=== PATIENT | female | born 1960 | race African-American/Black ===

== ENCOUNTER 2021-06-06 05:52 | Emergency (ER) | payer OTHER ==
[2021-06-06] MEDS ORDERED: Ketorolac Tromethamine 30 MG/ML VIAL ONE (06:13)
[2021-06-06] MEDS ORDERED: Fentanyl 100 MCG/2 ML VIAL ONE (09:17)
== END 2021-06-06 09:35 | disposition home or self-care (01) ==
LOC: ERS 05:52
DX: E11.42 Type 2 diabetes mellitus with diabetic polyneuropathy (principal); I10 Essential (primary) hypertension; J44.9 Chronic obstructive pulmonary disease, unspecified; Z79.899 Other long term (current) drug therapy
CPT/HCPCS: 96372; 99283; J1885; J3010

== ENCOUNTER 2022-05-10 06:24 | Inpatient (IN) | payer OTHER, SELFPAY ==
[2022-05-10] MEDS ORDERED: Ketorolac Tromethamine 30 MG/ML VIAL ONE (06:43)
[2022-05-10] MEDS ORDERED: Ondansetron PF 4 MG/2 ML Vial ONE ×2 (06:44→10:47)
[2022-05-10] MEDS ORDERED: Morphine 4 MG/ML VIAL ONE ×2 (06:44→10:57)
[2022-05-10 07:37] LABS: #Lymphocytes 1.5 thou/uL (1.20-3.40); #Monocytes 0.9 thou/uL (0.11-0.59); #Neutrophils 5.3 thou/uL (1.40-6.50); %Basophils 0.2 % (0.0-1.0); %Eosinophils 0.2 % (0.0-10.0); %Monocytes 11.1 % (0.0-10.0); %Neutrophils 69.4 % (42.0-75.0); Hemoglobin 14.2 g/dL (12.0-16.0); Mean Corpuscular HGB CONC 33.7 g/dL (32.0-36.0); Mean Corpuscular Hemoglobin 29.8 pg (27.0-31.0); Mean Corpuscular Volume 88.5 fl (78.0-98.0); Mean Platelet Volume 8.5 fL (7.4-10.4); Platelet Count 186 10x3/uL (130-400); RBC Distribution Width 17.9 % (11.5-14.5); Red Blood Cell (RBC) Count 4.77 mill/uL (4.20-5.40); White Blood Cell (WBC) Count 7.7 10x3/uL (4.8-10.8)
[2022-05-10 07:52] LABS: ALT (SGPT) 24 U/L (8-55); AST (SGOT) 36 U/L (5-34); Albumin 3.4 g/dL (3.4-4.8); Alkaline Phosphatase 174 U/L (40-110); Anion Gap 18 mmol/L (10-20); BUN (Urea Nitrogen) 25 mg/dL (9.8-20.1); Bilirubin, Total 5.6 mg/dL (0.2-1.2); Calc. Creatinine Clearance 0 mL/min (70-130); Calcium 9.5 mg/dL (7.8-10.44); Carbon Dioxide 21 mmol/L (23-31); Chloride 102 mmol/L (98-107); Estimated GFR 68; Globulin 5.1 g/dL (2.4-3.5); Glucose 87 mg/dL (80-115); Potassium 3.5 mmol/L (3.5-5.1); Protein, Total 8.5 g/dL (5.8-8.1); Sodium 137 mmol/L (136-145)
[2022-05-10] MEDS ORDERED: Nitroglycerin 2% Ointment 1 INCH/1 GM Packet ONE ×2 (07:55→13:16)
[2022-05-10] MEDS ORDERED: Furosemide 40 MG/4 ML VIAL ONE ×2 (07:55→13:16)
[2022-05-10] MEDS ORDERED: Aspirin Chewable 81 MG TAB ONE (07:55)
[2022-05-10 08:10] LABS: SARS-CoV-2 NAA Rapid Test DETECTED (NotDetected)
[2022-05-10 08:14] LABS: CKMB 0.3 ng/mL (0-6.6)
[2022-05-10 08:24] LABS: Bilirubin Negative (Negative); Blood, Urine Negative (Negative); Clarity Clear (Clear); Glucose, Urine (Dipstick) Normal (Negative); Ketone, Urine Negative (Negative); Leukocyte Negative Leu/uL (Negative); Nitrite Negative (Negative); Protein, Urine (Dipstick) 30 mg/dL (Neg-Trace); RBC/HPF 0-3 HPF (0-3); Specific Gravity, Urine 1.017 (1.002-1.036); Urobilinogen 6 mg/dL (Less than 2); WBC/HPF 0-3 HPF (0-3); pH, Urine 5.5 (5.0-9.0)
[2022-05-10 08:25] LABS: Bacteria/HPF Rare-Few HPF (None Seen)
[2022-05-10] MEDS ORDERED: Acetaminophen 500 MG TAB ONE (08:46)
[2022-05-10] MEDS ORDERED: Acetaminophen 500 MG TAB PO PRN (10:50)
[2022-05-10] MEDS ORDERED: Dextrose 50% Abboject 50 ML SYRINGE SLOW IVP PRN (10:56)
[2022-05-10] MEDS ORDERED: Dextrose 5% in Water 1,000 ML IV PRN (10:56)
[2022-05-10] MEDS ORDERED: Benzonatate 100 MG CAP PO PRN (10:56)
[2022-05-10] MEDS ORDERED: HumaLOG 300 UNITS/3 ML VIAL SC PRN ×2 (10:57)
[2022-05-10 10:59] LABS: Troponin I 0.036 ng/mL (< 0.028)
[2022-05-10] MEDS: Morphine 4 MG/ML VIAL SLOW IVP PRN ×3 (11:01→21:35)
[2022-05-10] MEDS ORDERED: Metoclopramide HCl 10 MG/2 ML VIAL IVP PRN (11:02)
[2022-05-10] MEDS ORDERED: Electrolyte Replacement Protocol FS SCH (11:15)
[2022-05-10] MEDS ORDERED: Gabapentin 400 MG CAP PO SCH (12:45)
[2022-05-10] MEDS ORDERED: traMADol HCl 50 MG TAB ONE (13:17)
[2022-05-10] MEDS: Furosemide 40 MG/4 ML VIAL SLOW IVP SCH (13:19)
[2022-05-10] MEDS: traMADol HCl 50 MG TAB PO PRN (13:19)
[2022-05-10 13:40] LABS: Troponin I 0.046 ng/mL (< 0.028)
[2022-05-10] MEDS ORDERED: Potassium Chloride 20 MEQ TAB PO SCH (13:45)
[2022-05-10] MEDS ORDERED: Potassium Chloride 20 MEQ TAB ONE (13:57)
[2022-05-10] MEDS ORDERED: Nitroglycerin 2% Ointment 1 INCH/1 GM Packet TOP SCH (14:00)
[2022-05-10] MEDS ORDERED: Iopamidol-370 76% 500 ML 1 ML ONE (15:36)
[2022-05-10 15:47] VITALS: BMI 37.3
[2022-05-10] MEDS: Carvedilol 6.25 MG TAB PO SCH (17:58)
[2022-05-10] MEDS ORDERED: DOBUTamine 500 mg/250 ml 250 ML IVPB SCH (19:00)
[2022-05-10] MEDS ORDERED: DOBUTamine 500 mg/250 ml 500 MG in Premix Bag 1 BAG IVPB SCH (19:00)
[2022-05-10] MEDS: Mometasone/Formoterol 200/5 60 PUFF INH SCH (19:32)
[2022-05-10] MEDS: Famotidine 20 MG TAB PO SCH (20:49)
[2022-05-10] MEDS: Montelukast Sodium 10 mg Tablet PO SCH (20:49)
[2022-05-10] MEDS: Gabapentin 400 MG CAP PO SCH (20:50)
[2022-05-10] MEDS: Albuterol 200 PUFF (6.7GM INHALER) INH SCH (20:50)
[2022-05-10] MEDS ORDERED: Atorvastatin Calcium 10 MG TAB PO SCH (21:00)
[2022-05-10] MEDS: NIRMATRELVIR 150 MG/RITONAVIR 100 MG PO SCH (21:19)
[2022-05-10] MEDS: DOBUTamine 500 mg/250 ml 500 MG in Premix Bag 1 BAG IVPB SCH (21:22)
[2022-05-11] MEDS: Albuterol 200 PUFF (6.7GM INHALER) INH SCH ×4 (03:50→20:44)
[2022-05-11 05:01] LABS: #Lymphocytes 1.2 thou/uL (1.20-3.40); #Monocytes 0.7 thou/uL (0.11-0.59); #Neutrophils 4.3 thou/uL (1.40-6.50); %Basophils 0.1 % (0.0-1.0); %Eosinophils 0.5 % (0.0-10.0); %Lymphocytes 18.8 % (21.0-51.0); %Neutrophils 69.6 % (42.0-75.0); Hemoglobin 11.9 g/dL (12.0-16.0); Mean Corpuscular HGB CONC 30.3 g/dL (32.0-36.0); Mean Corpuscular Hemoglobin 27.1 pg (27.0-31.0); Mean Corpuscular Volume 89.4 fl (78.0-98.0); Mean Platelet Volume 8.7 fL (7.4-10.4); Platelet Count 174 10x3/uL (130-400); RBC Distribution Width 18.1 % (11.5-14.5); Red Blood Cell (RBC) Count 4.39 mill/uL (4.20-5.40); White Blood Cell (WBC) Count 6.2 10x3/uL (4.8-10.8)
[2022-05-11 06:02] LABS: Anion Gap 14 mmol/L (10-20); BUN (Urea Nitrogen) 38 mg/dL (9.8-20.1); Calc. Creatinine Clearance 48 mL/min (70-130); Calcium 8.9 mg/dL (7.8-10.44); Carbon Dioxide 26 mmol/L (23-31); Chloride 99 mmol/L (98-107); Estimated GFR 40; Glucose 124 mg/dL (80-115); Sodium 135 mmol/L (136-145)
[2022-05-11] MEDS: Furosemide 40 MG/4 ML VIAL SLOW IVP SCH ×2 (06:08→13:52)
[2022-05-11] MEDS: Mometasone/Formoterol 200/5 60 PUFF INH SCH ×2 (08:57→18:41)
[2022-05-11] MEDS: Carvedilol 6.25 MG TAB PO SCH ×2 (09:00→17:49)
[2022-05-11] MEDS: Allopurinol 100 MG TAB PO SCH (09:00)
[2022-05-11] MEDS: Cholecalciferol (Vitamin D3) 400 UNITS TAB PO SCH (09:01)
[2022-05-11] MEDS: Aspirin Chewable 81 MG TAB PO SCH (09:01)
[2022-05-11] MEDS: Ascorbic Acid 500 mg Chewable Tablet PO SCH (09:01)
[2022-05-11] MEDS: Famotidine 20 MG TAB PO SCH ×2 (09:02→20:38)
[2022-05-11] MEDS: Gabapentin 400 MG CAP PO SCH ×3 (09:02→20:38)
[2022-05-11] MEDS: Morphine 4 MG/ML VIAL SLOW IVP PRN ×3 (09:04→20:39)
[2022-05-11] MEDS: Lisinopril 2.5 MG TAB PO SCH (09:04)
[2022-05-11] MEDS: Zinc Sulfate 220 MG CAP PO SCH (09:04)
[2022-05-11] MEDS: NIRMATRELVIR 150 MG/RITONAVIR 100 MG PO SCH ×2 (09:44→20:39)
[2022-05-11] MEDS ORDERED: Ondansetron PF 4 MG/2 ML Vial IVP PRN (14:05)
[2022-05-11] MEDS: DOBUTamine 500 mg/250 ml 500 MG in Premix Bag 1 BAG IVPB SCH (14:55)
[2022-05-11] MEDS: Montelukast Sodium 10 mg Tablet PO SCH (20:38)
[2022-05-12] MEDS: Albuterol 200 PUFF (6.7GM INHALER) INH SCH ×4 (02:19→17:55)
[2022-05-12 05:10] LABS: #Eosinphils 0.1 thou/uL (0.0-0.7); #Monocytes 0.5 thou/uL (0.11-0.59); #Neutrophils 3.7 thou/uL (1.40-6.50); %Basophils 0.6 % (0.0-1.0); %Eosinophils 1.5 % (0.0-10.0); %Lymphocytes 18.5 % (21.0-51.0); %Monocytes 10.2 % (0.0-10.0); %Neutrophils 69.1 % (42.0-75.0); Hemoglobin 12.4 g/dL (12.0-16.0); Mean Corpuscular HGB CONC 30.2 g/dL (32.0-36.0); Mean Corpuscular Hemoglobin 27.2 pg (27.0-31.0); Mean Corpuscular Volume 90.1 fl (78.0-98.0); Mean Platelet Volume 8.7 fL (7.4-10.4); Platelet Count 196 10x3/uL (130-400); RBC Distribution Width 18.1 % (11.5-14.5); Red Blood Cell (RBC) Count 4.55 mill/uL (4.20-5.40); White Blood Cell (WBC) Count 5.3 10x3/uL (4.8-10.8)
[2022-05-12 05:31] LABS: Anion Gap 13 mmol/L (10-20); BUN (Urea Nitrogen) 39 mg/dL (9.8-20.1); Calc. Creatinine Clearance 60 mL/min (70-130); Calcium 8.8 mg/dL (7.8-10.44); Carbon Dioxide 26 mmol/L (23-31); Chloride 101 mmol/L (98-107); Estimated GFR 43; Glucose 79 mg/dL (80-115); Magnesium 1.9 mg/dL (1.6-2.6); Potassium 4.4 mmol/L (3.5-5.1); Sodium 136 mmol/L (136-145)
[2022-05-12] MEDS: Furosemide 40 MG/4 ML VIAL SLOW IVP SCH ×2 (06:00→15:51)
[2022-05-12] MEDS: Mometasone/Formoterol 200/5 60 PUFF INH SCH ×2 (06:08→17:55)
[2022-05-12] MEDS: Morphine 4 MG/ML VIAL SLOW IVP PRN ×3 (06:12→20:21)
[2022-05-12] MEDS ORDERED: Magnesium 2 GM/50 ML(in water) 2 GM in Premix Bag 1 BAG IVPB SCH (08:00)
[2022-05-12] MEDS: NIRMATRELVIR 150 MG/RITONAVIR 100 MG PO SCH (09:02)
[2022-05-12] MEDS: Allopurinol 100 MG TAB PO SCH (09:03)
[2022-05-12] MEDS: Cholecalciferol (Vitamin D3) 400 UNITS TAB PO SCH (09:03)
[2022-05-12] MEDS: Ascorbic Acid 500 mg Chewable Tablet PO SCH (09:03)
[2022-05-12] MEDS: Gabapentin 400 MG CAP PO SCH ×3 (09:03→20:21)
[2022-05-12] MEDS: Aspirin Chewable 81 MG TAB PO SCH (09:03)
[2022-05-12] MEDS: Zinc Sulfate 220 MG CAP PO SCH (09:04)
[2022-05-12] MEDS: Famotidine 20 MG TAB PO SCH (09:04)
[2022-05-12] MEDS: Carvedilol 6.25 MG TAB PO SCH ×2 (09:05→17:54)
[2022-05-12] MEDS: DOBUTamine 500 mg/250 ml 500 MG in Premix Bag 1 BAG IVPB SCH (09:25)
[2022-05-12] MEDS: Colchicine 0.3 MG TAB PO SCH ×2 (09:26→20:21)
[2022-05-12] MEDS ORDERED: Empagliflozin 10 MG TAB PO SCH (09:45)
[2022-05-12] MEDS: traMADol HCl 50 MG TAB PO PRN (17:54)
[2022-05-12] MEDS: Montelukast Sodium 10 mg Tablet PO SCH (20:21)
[2022-05-13] MEDS: NIRMATRELVIR 150 MG/RITONAVIR 100 MG PO SCH ×3 (00:12→21:01)
[2022-05-13 04:17] LABS: #Eosinphils 0.1 thou/uL (0.0-0.7); #Lymphocytes 1.3 thou/uL (1.20-3.40); #Monocytes 0.6 thou/uL (0.11-0.59); #Neutrophils 4.2 thou/uL (1.40-6.50); %Basophils 0.2 % (0.0-1.0); %Eosinophils 1.7 % (0.0-10.0); %Lymphocytes 20.9 % (21.0-51.0); %Monocytes 9.3 % (0.0-10.0); %Neutrophils 67.9 % (42.0-75.0); Hemoglobin 12.1 g/dL (12.0-16.0); Mean Corpuscular HGB CONC 30.1 g/dL (32.0-36.0); Mean Corpuscular Hemoglobin 27.1 pg (27.0-31.0); Mean Corpuscular Volume 90.2 fl (78.0-98.0); Mean Platelet Volume 8.4 fL (7.4-10.4); Platelet Count 214 10x3/uL (130-400); Red Blood Cell (RBC) Count 4.45 mill/uL (4.20-5.40); White Blood Cell (WBC) Count 6.1 10x3/uL (4.8-10.8)
[2022-05-13 04:49] LABS: Anion Gap 14 mmol/L (10-20); BUN (Urea Nitrogen) 37 mg/dL (9.8-20.1); Calc. Creatinine Clearance 61 mL/min (70-130); Calcium 8.9 mg/dL (7.8-10.44); Carbon Dioxide 25 mmol/L (23-31); Chloride 99 mmol/L (98-107); Estimated GFR 43; Glucose 100 mg/dL (80-115); Magnesium 2.3 mg/dL (1.6-2.6); Potassium 4.2 mmol/L (3.5-5.1); Sodium 134 mmol/L (136-145)
[2022-05-13] MEDS: Albuterol 200 PUFF (6.7GM INHALER) INH SCH ×4 (05:09→17:20)
[2022-05-13] MEDS: DOBUTamine 500 mg/250 ml 500 MG in Premix Bag 1 BAG IVPB SCH (05:23)
[2022-05-13] MEDS: Furosemide 40 MG/4 ML VIAL SLOW IVP SCH ×2 (05:24→15:53)
[2022-05-13] MEDS: Mometasone/Formoterol 200/5 60 PUFF INH SCH ×2 (05:24→17:20)
[2022-05-13] MEDS: Morphine 4 MG/ML VIAL SLOW IVP PRN ×3 (07:30→21:11)
[2022-05-13] MEDS ORDERED: Lidocaine 5% Patch TD SCH (09:15)
[2022-05-13] MEDS ORDERED: traMADol HCl 50 MG TAB PO SCH (09:15)
[2022-05-13] MEDS: Cholecalciferol (Vitamin D3) 400 UNITS TAB PO SCH (09:43)
[2022-05-13] MEDS: Gabapentin 400 MG CAP PO SCH ×3 (09:43→21:02)
[2022-05-13] MEDS: Colchicine 0.3 MG TAB PO SCH ×2 (09:43→21:00)
[2022-05-13] MEDS: Ascorbic Acid 500 mg Chewable Tablet PO SCH (09:44)
[2022-05-13] MEDS: Aspirin Chewable 81 MG TAB PO SCH (09:44)
[2022-05-13] MEDS: Zinc Sulfate 220 MG CAP PO SCH (09:44)
[2022-05-13] MEDS: Carvedilol 6.25 MG TAB PO SCH ×2 (09:44→17:17)
[2022-05-13] MEDS: Allopurinol 100 MG TAB PO SCH (09:44)
[2022-05-13] MEDS: Empagliflozin 10 MG TAB PO SCH (09:45)
[2022-05-13] MEDS: Famotidine 20 MG TAB PO SCH (09:45)
[2022-05-13] MEDS ORDERED: methylPREDNISolone Sod Succ/PF 125 MG/2 ML VIAL IVP SCH (17:45)
[2022-05-13] MEDS: Montelukast Sodium 10 mg Tablet PO SCH (21:02)
[2022-05-13] MEDS: LIDOCAINE Patch Removal TOP SCH (21:03)
[2022-05-14] MEDS: Albuterol 200 PUFF (6.7GM INHALER) INH SCH ×4 (00:28→18:16)
[2022-05-14 05:07] LABS: #Lymphocytes 0.5 thou/uL (1.20-3.40); #Monocytes 0.1 thou/uL (0.11-0.59); #Neutrophils 3.4 thou/uL (1.40-6.50); %Eosinophils 0.3 % (0.0-10.0); %Lymphocytes 13.4 % (21.0-51.0); %Monocytes 2.9 % (0.0-10.0); %Neutrophils 83.4 % (42.0-75.0); Hemoglobin 12.7 g/dL (12.0-16.0); Mean Corpuscular HGB CONC 30.9 g/dL (32.0-36.0); Mean Corpuscular Hemoglobin 27.6 pg (27.0-31.0); Mean Corpuscular Volume 89.6 fl (78.0-98.0); Mean Platelet Volume 8.7 fL (7.4-10.4); Platelet Count 202 10x3/uL (130-400); RBC Distribution Width 17.7 % (11.5-14.5); Red Blood Cell (RBC) Count 4.58 mill/uL (4.20-5.40)
[2022-05-14] MEDS: Morphine 4 MG/ML VIAL SLOW IVP PRN (05:25)
[2022-05-14 05:31] LABS: ALT (SGPT) 19 U/L (8-55); AST (SGOT) 25 U/L (5-34); Albumin 3.2 g/dL (3.4-4.8); Alkaline Phosphatase 149 U/L (40-110); Anion Gap 16 mmol/L (10-20); BUN (Urea Nitrogen) 43 mg/dL (9.8-20.1); Bilirubin, Total 2.4 mg/dL (0.2-1.2); Calc. Creatinine Clearance 65 mL/min (70-130); Calcium 8.9 mg/dL (7.8-10.44); Carbon Dioxide 23 mmol/L (23-31); Chloride 100 mmol/L (98-107); Estimated GFR 46; Globulin 4.6 g/dL (2.4-3.5); Glucose 165 mg/dL (80-115); Magnesium 2.3 mg/dL (1.6-2.6); Potassium 4.8 mmol/L (3.5-5.1); Protein, Total 7.8 g/dL (5.8-8.1); Sodium 134 mmol/L (136-145)
[2022-05-14] MEDS ORDERED: Meclizine HCl 12.5 MG TAB PO PRN (05:36)
[2022-05-14] MEDS ORDERED: Furosemide 40 MG/4 ML VIAL SLOW IVP SCH (06:00)
[2022-05-14] MEDS: Mometasone/Formoterol 200/5 60 PUFF INH SCH ×2 (08:32→18:16)
[2022-05-14] MEDS ORDERED: Polyethylene Glycol 3350 17 GM Packet PO PRN (08:59)
[2022-05-14] MEDS ORDERED: Polyethylene Glycol 3350 17 GM Packet PO SCH (09:00)
[2022-05-14] MEDS: Famotidine 20 MG TAB PO SCH (09:44)
[2022-05-14] MEDS: Senokot S 8.6-50 MG TAB PO SCH ×2 (09:44→20:49)
[2022-05-14] MEDS: Aspirin Chewable 81 MG TAB PO SCH (09:44)
[2022-05-14] MEDS: Ascorbic Acid 500 mg Chewable Tablet PO SCH (09:44)
[2022-05-14] MEDS: Lidocaine 5% Patch TD SCH (09:44)
[2022-05-14] MEDS: Zinc Sulfate 220 MG CAP PO SCH (09:44)
[2022-05-14] MEDS: Empagliflozin 10 MG TAB PO SCH (09:44)
[2022-05-14] MEDS: Carvedilol 6.25 MG TAB PO SCH ×2 (09:44→16:39)
[2022-05-14] MEDS: Colchicine 0.3 MG TAB PO SCH ×2 (09:44→20:48)
[2022-05-14] MEDS: Allopurinol 100 MG TAB PO SCH (09:44)
[2022-05-14] MEDS: Gabapentin 400 MG CAP PO SCH ×3 (09:44→20:49)
[2022-05-14] MEDS: Cholecalciferol (Vitamin D3) 400 UNITS TAB PO SCH (09:44)
[2022-05-14] MEDS: NIRMATRELVIR 150 MG/RITONAVIR 100 MG PO SCH ×2 (09:45→20:48)
[2022-05-14] MEDS ORDERED: predniSONE 20 MG TAB PO SCH (11:30)
[2022-05-14] MEDS: LIDOCAINE Patch Removal TOP SCH (20:49)
[2022-05-14] MEDS: Montelukast Sodium 10 mg Tablet PO SCH (20:49)
[2022-05-15] MEDS: Albuterol 200 PUFF (6.7GM INHALER) INH SCH ×4 (02:05→21:21)
[2022-05-15 04:53] LABS: Anion Gap 20 mmol/L (10-20); BUN (Urea Nitrogen) 51 mg/dL (9.8-20.1); Calc. Creatinine Clearance 52 mL/min (70-130); Calcium 9.2 mg/dL (7.8-10.44); Carbon Dioxide 22 mmol/L (23-31); Chloride 97 mmol/L (98-107); Estimated GFR 36; Glucose 162 mg/dL (80-115); Potassium 4.9 mmol/L (3.5-5.1); Sodium 134 mmol/L (136-145)
[2022-05-15] MEDS ORDERED: HYDROcodone/Acetaminophen 5/325 mg Tablet PO PRN (08:57)
[2022-05-15] MEDS ORDERED: HYDROcodone/Acetaminophen 5/325 mg Tablet PO SCH (09:00)
[2022-05-15] MEDS: Colchicine 0.3 MG TAB PO SCH ×2 (10:01→21:20)
[2022-05-15] MEDS: methylPREDNISolone Sod Succ 40 MG VIAL IVP SCH ×2 (10:01→21:20)
[2022-05-15] MEDS: Ascorbic Acid 500 mg Chewable Tablet PO SCH (10:01)
[2022-05-15] MEDS: Famotidine 20 MG TAB PO SCH (10:02)
[2022-05-15] MEDS: Gabapentin 300 MG CAP PO SCH ×3 (10:02→21:20)
[2022-05-15] MEDS: Allopurinol 100 MG TAB PO SCH ×2 (10:02→12:15)
[2022-05-15] MEDS: Cholecalciferol (Vitamin D3) 400 UNITS TAB PO SCH (10:03)
[2022-05-15] MEDS: Empagliflozin 10 MG TAB PO SCH (10:03)
[2022-05-15] MEDS: Carvedilol 6.25 MG TAB PO SCH ×2 (10:03→17:47)
[2022-05-15] MEDS: Zinc Sulfate 220 MG CAP PO SCH (10:03)
[2022-05-15] MEDS: Senokot S 8.6-50 MG TAB PO SCH ×2 (10:03→21:20)
[2022-05-15] MEDS: Aspirin Chewable 81 MG TAB PO SCH (10:03)
[2022-05-15] MEDS: Lidocaine 5% Patch TD SCH (10:04)
[2022-05-15] MEDS: Mometasone/Formoterol 200/5 60 PUFF INH SCH ×2 (10:04→21:21)
[2022-05-15] MEDS: NIRMATRELVIR 150 MG/RITONAVIR 100 MG PO SCH (10:09)
[2022-05-15] MEDS: Gabapentin 400 MG CAP PO SCH (12:15)
[2022-05-15] MEDS ORDERED: Hydrocortisone 1% Cream 30 GM TUBE TOP PRN (20:02)
[2022-05-15] MEDS: Montelukast Sodium 10 mg Tablet PO SCH (21:20)
[2022-05-15] MEDS: LIDOCAINE Patch Removal TOP SCH (21:20)
[2022-05-16] MEDS: Albuterol 200 PUFF (6.7GM INHALER) INH SCH ×2 (00:41→15:56)
[2022-05-16 04:33] LABS: Anion Gap 17 mmol/L (10-20); BUN (Urea Nitrogen) 56 mg/dL (9.8-20.1); Calc. Creatinine Clearance 52 mL/min (70-130); Calcium 8.7 mg/dL (7.8-10.44); Carbon Dioxide 22 mmol/L (23-31); Chloride 100 mmol/L (98-107); Estimated GFR 36; Glucose 180 mg/dL (80-115); Potassium 4.4 mmol/L (3.5-5.1); Sodium 135 mmol/L (136-145)
[2022-05-16] MEDS: Lisinopril 2.5 MG TAB PO SCH (09:43)
[2022-05-16] MEDS: methylPREDNISolone Sod Succ 40 MG VIAL IVP SCH (09:43)
[2022-05-16] MEDS: Carvedilol 6.25 MG TAB PO SCH (09:43)
[2022-05-16] MEDS: Aspirin Chewable 81 MG TAB PO SCH (09:44)
[2022-05-16] MEDS: Ascorbic Acid 500 mg Chewable Tablet PO SCH (09:44)
[2022-05-16] MEDS: Zinc Sulfate 220 MG CAP PO SCH (09:44)
[2022-05-16] MEDS: Empagliflozin 10 MG TAB PO SCH (09:45)
[2022-05-16] MEDS: Allopurinol 100 MG TAB PO SCH (09:45)
[2022-05-16] MEDS: Cholecalciferol (Vitamin D3) 400 UNITS TAB PO SCH (09:45)
[2022-05-16] MEDS: Senokot S 8.6-50 MG TAB PO SCH (09:45)
[2022-05-16] MEDS: Lidocaine 5% Patch TD SCH (09:46)
[2022-05-16] MEDS: Famotidine 20 MG TAB PO SCH (09:46)
[2022-05-16] MEDS: Colchicine 0.3 MG TAB PO SCH (09:46)
[2022-05-16] MEDS: Gabapentin 300 MG CAP PO SCH ×2 (09:51→13:56)
[2022-05-16 13:47] VITALS: BP 120/86; TEMP 97.2
[2022-05-16] MEDS ORDERED: Furosemide 20 MG TAB PO SCH (14:00)
[2022-05-16] MEDS: Mometasone/Formoterol 200/5 60 PUFF INH SCH (15:56)
== END 2022-05-16 15:57 | disposition home or self-care (01) | DRG 291 ==
LOC: ERS 06:24 → ERHOLD 08:57 → 2NO 15:28
PROVIDERS: ADMIT Family Medicine; ATTEND Family Medicine
DX: I13.0 Hypertensive heart and chronic kidney disease with heart failure and stage 1 through stage 4 chronic kidney disease, or unspecified chronic kidney disease (principal); I50.43 Acute on chronic combined systolic (congestive) and diastolic (congestive) heart failure; U07.1 COVID-19; I31.39 Other pericardial effusion (noninflammatory); N17.9 Acute kidney failure, unspecified; J44.9 Chronic obstructive pulmonary disease, unspecified; M10.9 Gout, unspecified; E78.5 Hyperlipidemia, unspecified; I42.0 Dilated cardiomyopathy; I25.10 Atherosclerotic heart disease of native coronary artery without angina pectoris; E11.22 Type 2 diabetes mellitus with diabetic chronic kidney disease; N18.30 Chronic kidney disease, stage 3 unspecified; E66.9 Obesity, unspecified; Z79.84 Long term (current) use of oral hypoglycemic drugs; Z79.51 Long term (current) use of inhaled steroids; Z79.899 Other long term (current) drug therapy; Z95.810 Presence of automatic (implantable) cardiac defibrillator; Z68.37 Body mass index [BMI] 37.0-37.9, adult; I27.20 Pulmonary hypertension, unspecified
CPT/HCPCS: 36415; 36416; 51701; 70450; 71045; 71275; 76705; 80048; 80053; 81003; 81015; 82553; 83605; 83735; 83880; 84443; 84484; 84550; 85025; 85379; 87040; 93005; 93306; 93798; 96374; 96375; 97139; J1250; J1650; J1815; J1885; J1940; J2270; J2405; J2920; J2930; J3475; J7512; Q9967

== ENCOUNTER 2022-07-05 17:42 | Inpatient (IN) | payer OTHER ==
[2022-07-05] MEDS ORDERED: Morphine 4 MG/ML VIAL ONE (18:22)
[2022-07-05] MEDS ORDERED: Furosemide 40 MG/4 ML VIAL ONE (18:22)
[2022-07-05] MEDS ORDERED: Furosemide 20 MG/2 ML VIAL ONE (18:22)
[2022-07-05] MEDS ORDERED: Ondansetron PF 4 MG/2 ML Vial ONE (18:22)
[2022-07-05 18:34] LABS: #Eosinphils 0.1 thou/uL (0.0-0.7); #Lymphocytes 1.4 thou/uL (1.20-3.40); #Monocytes 0.3 thou/uL (0.11-0.59); #Neutrophils 4.3 thou/uL (1.40-6.50); %Basophils 0.4 % (0.0-1.0); %Eosinophils 0.9 % (0.0-10.0); %Lymphocytes 22.3 % (21.0-51.0); %Monocytes 5.7 % (0.0-10.0); %Neutrophils 70.7 % (42.0-75.0); Hemoglobin 12.8 g/dL (12.0-16.0); Mean Corpuscular HGB CONC 32.7 g/dL (32.0-36.0); Mean Corpuscular Hemoglobin 28.9 pg (27.0-31.0); Mean Corpuscular Volume 88.3 fl (78.0-98.0); Mean Platelet Volume 8.8 fL (7.4-10.4); Platelet Count 196 10x3/uL (130-400); RBC Distribution Width 18.5 % (11.5-14.5); Red Blood Cell (RBC) Count 4.44 mill/uL (4.20-5.40); White Blood Cell (WBC) Count 6.1 10x3/uL (4.8-10.8)
[2022-07-05 18:59] LABS: ALT (SGPT) 14 U/L (8-55); AST (SGOT) 22 U/L (5-34); Albumin 3.4 g/dL (3.4-4.8); Alkaline Phosphatase 138 U/L (40-110); Anion Gap 17 mmol/L (10-20); BUN (Urea Nitrogen) 15 mg/dL (9.8-20.1); Bilirubin, Total 3.2 mg/dL (0.2-1.2); Calc. Creatinine Clearance 0 mL/min (70-130); Calcium 8.8 mg/dL (7.8-10.44); Carbon Dioxide 25 mmol/L (23-31); Chloride 101 mmol/L (98-107); Estimated GFR 68; Globulin 3.5 g/dL (2.4-3.5); Glucose 183 mg/dL (80-115); Protein, Total 6.9 g/dL (5.8-8.1); Sodium 141 mmol/L (136-145)
[2022-07-05 19:05] LABS: Potassium 2.4 mmol/L (3.5-5.1)
[2022-07-05] MEDS ORDERED: Potassium Chloride 20 MEQ TAB ONE (19:24)
[2022-07-05] MEDS ORDERED: Potassium Chloride 40 MEQ in Sodium Chloride 0.9% 250 ML 250 ML IVPB SCH (19:30)
[2022-07-05] MEDS ORDERED: diphenhydrAMINE 50 MG/ML VIAL ONE (19:31)
[2022-07-05 20:25] LABS: Magnesium 1.6 mg/dL (1.6-2.6)
[2022-07-05] MEDS ORDERED: Ondansetron ODT 4 MG TAB SL PRN (20:30)
[2022-07-05] MEDS ORDERED: Acetaminophen 325 MG TAB PO PRN (20:30)
[2022-07-05] MEDS ORDERED: Ondansetron PF 4 MG/2 ML Vial IVP PRN (20:30)
[2022-07-05 21:31] VITALS: BMI 40.3
[2022-07-05 22:26] LABS: Troponin I 0.042 ng/mL (< 0.028)
[2022-07-06] MEDS: Melatonin 3 MG TAB PO PRN ×2 (01:07→21:42)
[2022-07-06 01:36] LABS: Troponin I 0.041 ng/mL (< 0.028)
[2022-07-06 05:08] LABS: #Lymphocytes 1.4 thou/uL (1.20-3.40); #Monocytes 0.4 thou/uL (0.11-0.59); #Neutrophils 3.4 thou/uL (1.40-6.50); %Basophils 0.6 % (0.0-1.0); %Eosinophils 0.8 % (0.0-10.0); %Monocytes 6.8 % (0.0-10.0); %Neutrophils 65.8 % (42.0-75.0); Hemoglobin 12.4 g/dL (12.0-16.0); Mean Corpuscular HGB CONC 31.5 g/dL (32.0-36.0); Mean Corpuscular Hemoglobin 28.4 pg (27.0-31.0); Mean Platelet Volume 8.9 fL (7.4-10.4); Platelet Count 202 10x3/uL (130-400); RBC Distribution Width 18.5 % (11.5-14.5); Red Blood Cell (RBC) Count 4.35 mill/uL (4.20-5.40); White Blood Cell (WBC) Count 5.2 10x3/uL (4.8-10.8)
[2022-07-06 05:24] LABS: Anion Gap 17 mmol/L (10-20); BUN (Urea Nitrogen) 15 mg/dL (9.8-20.1); Calc. Creatinine Clearance 88 mL/min (70-130); Calcium 8.7 mg/dL (7.8-10.44); Carbon Dioxide 21 mmol/L (23-31); Chloride 104 mmol/L (98-107); Estimated GFR 63; Glucose 112 mg/dL (80-115); Potassium 3.1 mmol/L (3.5-5.1); Sodium 139 mmol/L (136-145)
[2022-07-06] MEDS ORDERED: Ipratropium/Albuterol 3 ML NEB EZPAP PRN (05:28)
[2022-07-06] MEDS ORDERED: HumaLOG 300 UNITS/3 ML VIAL SC PRN ×2 (05:47)
[2022-07-06] MEDS ORDERED: Dextrose 5% in Water 1,000 ML IV PRN (05:47)
[2022-07-06] MEDS ORDERED: Dextrose 50% Abboject 50 ML SYRINGE SLOW IVP PRN (05:47)
[2022-07-06] MEDS: traMADol HCl 50 MG TAB PO SCH ×2 (05:59→06:03)
[2022-07-06] MEDS: Furosemide 40 MG/4 ML VIAL SLOW IVP SCH ×2 (06:02→14:07)
[2022-07-06] MEDS ORDERED: Potassium Chloride 20 MEQ TAB PO SCH ×2 (08:00→18:30)
[2022-07-06 08:03] LABS: Magnesium 1.7 mg/dL (1.6-2.6)
[2022-07-06] MEDS ORDERED: Magnesium Oxide 400 MG TAB PO SCH (08:45)
[2022-07-06 14:43] LABS: Anion Gap 16 mmol/L (10-20); Carbon Dioxide 24 mmol/L (23-31); Chloride 103 mmol/L (98-107); Potassium 3.2 mmol/L (3.5-5.1); Sodium 140 mmol/L (136-145)
[2022-07-06] MEDS ORDERED: diphenhydrAMINE 25 MG CAP PO SCH ×2 (20:45→21:45)
[2022-07-06] MEDS: Carvedilol 6.25 MG TAB PO SCH (21:42)
[2022-07-06] MEDS ORDERED: Acetaminophen 325 MG TAB PO PRN (22:00)
[2022-07-07 04:52] LABS: Anion Gap 14 mmol/L (10-20); BUN (Urea Nitrogen) 19 mg/dL (9.8-20.1); Calc. Creatinine Clearance 68 mL/min (70-130); Calcium 8.8 mg/dL (7.8-10.44); Carbon Dioxide 26 mmol/L (23-31); Chloride 103 mmol/L (98-107); Estimated GFR 46; Glucose 90 mg/dL (80-115); Magnesium 1.7 mg/dL (1.6-2.6); Potassium 3.6 mmol/L (3.5-5.1); Sodium 139 mmol/L (136-145)
[2022-07-07] MEDS: Furosemide 40 MG/4 ML VIAL SLOW IVP SCH ×2 (06:29→13:30)
[2022-07-07] MEDS: Carvedilol 6.25 MG TAB PO SCH ×2 (09:14→20:54)
[2022-07-07] MEDS ORDERED: Morphine 2 MG/ML VIAL SLOW IVP SCH (21:00)
[2022-07-08 03:20] VITALS: TEMP 97.7
[2022-07-08 05:19] LABS: Anion Gap 14 mmol/L (10-20); BUN (Urea Nitrogen) 24 mg/dL (9.8-20.1); Calc. Creatinine Clearance 62 mL/min (70-130); Calcium 8.9 mg/dL (7.8-10.44); Carbon Dioxide 25 mmol/L (23-31); Chloride 102 mmol/L (98-107); Estimated GFR 42; Glucose 106 mg/dL (80-115); Magnesium 1.7 mg/dL (1.6-2.6); Potassium 3.5 mmol/L (3.5-5.1); Sodium 137 mmol/L (136-145)
[2022-07-08] MEDS ORDERED: Morphine 2 MG/ML VIAL SLOW IVP SCH (05:45)
[2022-07-08] MEDS ORDERED: Torsemide 20 MG TAB PO SCH (09:00)
[2022-07-08] MEDS: Carvedilol 6.25 MG TAB PO SCH (09:01)
[2022-07-08 09:06] VITALS: BP 127/82
== END 2022-07-08 10:35 | disposition home or self-care (01) | DRG 280 ==
LOC: ERS 17:42 → 2NO 20:09
PROVIDERS: ADMIT Internal Medicine; ATTEND Internal Medicine
DX: I13.0 Hypertensive heart and chronic kidney disease with heart failure and stage 1 through stage 4 chronic kidney disease, or unspecified chronic kidney disease (principal); I50.23 Acute on chronic systolic (congestive) heart failure; I21.A1 Myocardial infarction type 2; Z20.822 Contact with and (suspected) exposure to COVID-19; J44.9 Chronic obstructive pulmonary disease, unspecified; E87.6 Hypokalemia; E11.22 Type 2 diabetes mellitus with diabetic chronic kidney disease; N18.30 Chronic kidney disease, stage 3 unspecified; I25.10 Atherosclerotic heart disease of native coronary artery without angina pectoris; E78.5 Hyperlipidemia, unspecified; M10.9 Gout, unspecified; R33.9 Retention of urine, unspecified; Z79.84 Long term (current) use of oral hypoglycemic drugs; Z79.899 Other long term (current) drug therapy; Z90.710 Acquired absence of both cervix and uterus
CPT/HCPCS: 36415; 36416; 71045; 74177; 80048; 80053; 82248; 82553; 83735; 83880; 84484; 85025; 93005; 93970; J1200; J1650; J1940; J2270; J2272; J2405; J3480; J7050